=== PATIENT | male | born 1980 | race American Indian/Alaskan Native ===

== ENCOUNTER 2021-07-30 20:56 | Emergency (ER) | payer OTHER ==
[2021-07-31 00:41] VITALS: BP 96/60
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
[2021-07-31] MEDS ORDERED: diazePAM 5 MG TAB PO ONE (00:46)
[2021-07-31] MEDS ORDERED: ACETAMINOPHEN 500 MG TAB PO ONE (00:46)
== END 2021-07-31 01:34 | disposition home or self-care (01) ==
LOC: ED 20:56
DX: S29.012A Strain of muscle and tendon of back wall of thorax, initial encounter (principal); J45.909 Unspecified asthma, uncomplicated; F17.200 Nicotine dependence, unspecified, uncomplicated; M79.18 Myalgia, other site; V49.49XA Driver injured in collision with other motor vehicles in traffic accident, initial encounter; Y93.89 Activity, other specified; Y92.89 Other specified places as the place of occurrence of the external cause; Y99.8 Other external cause status
CPT/HCPCS: 99282